=== PATIENT | female | born 1955 | race Caucasian/White ===

== ENCOUNTER 2016-09-03 14:22 | Emergency (ER) | payer OTHER ==
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
[2016-09-03] MEDS: IPRATROPIUM/ALBUTEROL SULFATE 3 ML AMPUL.NEB NEB ONE ×2 (15:30→16:34)
[2016-09-03] MEDS: methylPREDNISolone SOD SUCC 125 MG/2 ML VIAL IVP PRN (16:05)
[2016-09-03] MEDS ORDERED: methylPREDNISolone SOD SUCC 125 MG/2 ML VIAL ONE (16:07)
[2016-09-03 16:22] LABS: BASOPHILS % 0.4 (0.0-1.5); EOSINOPHILS % 4.3 % (0.0-6.8); MEAN CORPUSCULAR HEMOGLOBIN 28.5 pg (28.0-34.0); MONOCYTES # 0.3 # k/uL (0.0-0.9); MONOCYTES % 6.2 % (0.0-11.0); NEUTROPHILS # 3.8 # k/uL (1.4-7.7)
[2016-09-03 16:39] LABS: eGFR (African) > 60; eGFR (Non-African) > 60
[2016-09-03 17:39] VITALS: BP 107/69
--- NOTE | 2016-09-03 18:35 | Diagnostic Imaging Report ---
[facility] [address] [facility].[address] [address] Report Submission Date: Sep 03, 2016 4:04:17 PM HAND STRIPPER Patient Study Name: PHANI CARDOSO Date: Sep 03, 2016 3:37:55 PM HAND STRIPPER Modality Type: CR Gender: F Description: CHEST : 55 Institution: [facility] Physician: EDWIN Juarez DO 2 views of the chest History: DIFFICULTY BREATHING X2 DAYS, SMOKER (Hx) / ASTHMA Findings: Comparison: None Heart is normal in size Left apical pleural thickening is present There is no focal consolidation, pleural effusion or pneumothorax, lungs are hyperexpanded. No acute osseous pathology Impression: No focal consolidation or pleural effusion Emphysema Electronically signed on Sep 03, 2016 4:04:17 PM HAND STRIPPER by: Radha VICTORIA
== END 2016-09-03 17:05 | disposition home or self-care (01) ==
LOC: EDBD 14:22 → ED 14:22
DX: J44.1 Chronic obstructive pulmonary disease with (acute) exacerbation (principal); F17.210 Nicotine dependence, cigarettes, uncomplicated
CPT/HCPCS: 71020; 80053; 85025; 94640; 96374; 99283; 99284; J2930; S1016

== ENCOUNTER 2017-01-26 01:03 | Emergency (ER) | payer OTHER ==
[2017-01-26] MEDS ORDERED: IPRATROPIUM/ALBUTEROL SULFATE 3 ML AMPUL.NEB NEB ONE ×2 (01:50→01:51)
[2017-01-26] MEDS ORDERED: ALBUTEROL SULFATE 2.5 MG/3 ML AMPUL.NEB NEB ONE ×2 (01:51→02:21)
[2017-01-26 02:01] LABS: BASOPHILS % 1.3 (0.0-1.5); EOSINOPHILS % 4.3 % (0.0-6.8); MEAN CORPUSCULAR VOLUME 88.4 fl (80.0-100.0); MONOCYTES % 5.3 % (0.0-11.0); NEUTROPHILS # 7.5 # k/uL (1.4-7.7)
[2017-01-26 02:17] LABS: eGFR (African) > 60; eGFR (Non-African) > 60
[2017-01-26] MEDS ORDERED: KETOROLAC TROMETHAMINE 30 MG/1ML VIAL ONE (03:10)
[2017-01-26] MEDS ORDERED: KETOROLAC TROMETHAMINE 30 MG/1ML VIAL IVP ONE (03:13)
[2017-01-26] MEDS ORDERED: methylPREDNISolone SOD SUCC 125 MG/2 ML VIAL ONE (03:19)
--- NOTE | 2017-01-26 03:32 | ED Physician Documentation ---
Dyspnea - HISTORIAN Historian: patient, child - HPI Stated Complaint: soa Chief Complaint: Dyspnea Additional Information: sob cough chills-thinks caught pneumonia from son-same symptoms Onset: days ago (1) Duration: continues in ED, worse Initiating Event: upper respiratory illness Severity: moderate Exacerbated By: exertion, laying flat, coughing Associated Symptoms: chills, chest discomfort, productive cough - ROS CONST: recent illness EYES/ENT: denies: problems with vision GI/: none NEURO/PSYCH: headache (thinks from coughing) - PAST HX Lung Disease: COPD, other (spinal stenosis djd fibromyalgia ra djd copd) Cardiac Disease: none PE Risk Factors: hypertension Surgeries/Procedures: hysterectomy, other (neck c-sect hernia umb appy) Allergies/Adverse Reactions: Allergies Allergy/AdvReac Type Severity Reaction Status Date / Time morphine Allergy Intermediate Verified 01/26/17 01:15 Penicillins Allergy Verified 01/26/17 01:15 Home Medications: Ambulatory Orders Medication Instructions Recorded Escitalopram Oxalate [Lexapro] 30 mg PO QD 09/03/16 Oxycodone HCl [Roxicodone] 30 mg PO QID 09/03/16 Pregabalin [Lyrica] 100 mg PO TID 09/03/16 clonazePAM [Klonopin] 1 mg PO HS 09/03/16 Ketorolac Tromethamine 20 mg PO PRN PRN 01/26/17 Oxycodone HCl [Oxycontin] 30 mg PO BID 01/26/17 - SOCIAL HX Smoking History: less than 1 pack/day Alcohol Use: none Drug Use: none - FAMILY HX Family History: no significant history - VITAL SIGNS Vital Signs: Vital Signs Temp Pulse Resp BP Pulse Ox 98.7 F 108 H 22 108/79 91 L 01/26/17 01:03 01/26/17 01:03 01/26/17 01:03 01/26/17 01:03 01/26/17 01:03 - REVIEWED ASSESSMENTS Nursing Assessment Reviewed: Yes Vitals Reviewed: Yes ED Results Lab/Radiology - Lab Results Lab Results: Lab Results 01/26/17 01:58 WBC 9.20 K/ul K/ul (4.00-12.00) RBC 5.10 M/ul M/ul (3.90-5.20) Hgb 14.3 g/dL g/dL (12.0-16.0) Hct 45.0 % % (34.5-46.5) MCV 88.4 fl fl (80.0-100.0) MCH 28.0 pg pg (28.0-34.0) MCHC 31.7 g/dL g/dL (30.0-36.0) RDW 14.6 % H % (11.3-14.3) Plt Count 167 K/mm3 K/mm3 (130-400) Neut % (Auto) 81.4 % H % (39.0-79.0) Lymph % (Auto) 5.9 % L % (16.0-50.0) [place] % (Auto) 5.3 % % (0.0-11.0) Eos % (Auto) 4.3 % % (0.0-6.8) Baso % (Auto) 1.3 (0.0-1.5) Neut # 7.5 # k/uL # k/uL (1.4-7.7) Lymph # 0.5 # k/uL L # k/uL (0.6-4.0) [place] # 0.5 # k/uL # k/uL (0.0-0.9) Eos # 0.4 # k/uL # k/uL (0.0-0.6) Baso # 0.1 # k/uL # k/uL (0.0-0.5) Reactive Lymphs % 1.8 % % (0.0-5.0) Reactive Lymphs # 0.2 # k/uL # k/uL (0.0-0.8) - Radiology Radiology Impressions: no pneumonia apparent -= adv copd - Orders Orders: ED Orders Category Date Time Status Place IV Lock 1T Care 01/26/17 01:10 Active CHEST P.A.&LAT 2 VIEWS [RAD] Stat Exams 01/26/17 Taken CBC/PLATELET/DIFF Routine Lab 01/26/17 01:58 Completed CMP Routine Lab 01/26/17 01:57 Received Albuterol Sulfate [Ventolin] Med 01/26/17 01:51 Discontinued 2.5 mg NEB NOW ONE Ipratropium/Albuterol Sulfate [Duoneb] Med 01/26/17 01:51 Discontinued 3 ml NEB .STK-MED ONE Ipratropium/Albuterol Sulfate [Duoneb] Med 01/26/17 01:50 Discontinued 3 ml NEB NOW ONE Oxygen Daily Oxygen 01/26/17 02:00 Ordered EKG WITH COMPARISON Stat Ther 01/26/17 Ordered Dyspnea Physical Exam - EXAM General Appearance: moderate distress EENT: eye inspection normal Neck: nml inspection. No: lymphadenopathy Respiratory: speaks full sentences, prolonged expirations, decreased air movement, wheezes, rales, rhonchi. No: breath sounds nml CVS: reg. rate & rhythm Abdomen: non-tender, no distention Skin: color nml, no rash. No: cyanosis, diaphoresis, pallor Extremities: normal range of motion Neuro/Psych: oriented x3, motor nml, sensation nml, mood/affect nml Discharge Clincal Impression: acute bronchitis/copd Referrals: Primary Doctor,No [Primary Care Provider] - 2 Days Home Medications: Ambulatory Orders Escitalopram Oxalate [Lexapro] 30 mg PO QD 09/03/16 Oxycodone HCl [Roxicodone] 30 mg PO QID 09/03/16 Pregabalin [Lyrica] 100 mg PO TID 09/03/16 clonazePAM [Klonopin] 1 mg PO HS 09/03/16 Ketorolac Tromethamine 20 mg PO PRN PRN 01/26/17 Oxycodone HCl [Oxycontin] 30 mg PO BID 01/26/17 Comments: home meds dc cigarettes Condition: Good Disposition: 01 HOME, SELF-CARE Decision to Admit: NO Decision Time: 03:32
[2017-01-26 03:55] VITALS: BP 107/71
--- NOTE | 2017-01-26 06:51 | Diagnostic Imaging Report ---
KATIA PINEDA~ [facility] [address] [address] ~ ~ ~ ~ Report Submission Date: Jan 26, 2017 3:12:01 AM CDT Patient ~ Study Name: PHANI CARDOSO ~ Date: Jan 26, 2017 1:36:59 AM CDT ~ Modality Type: CR Gender: F ~ Description: CHEST : 55 ~ Institution: [facility] Physician: KATIA PINEDA ~ ~ ~ ~ Chest 2 views History: 3 days of shortness of breath. Smoker. Findings: The lungs are moderately to markedly hyperinflated without pneumonia, pleural effusion, or pneumothorax. Cervical fusion hardware is observed. Heart size is normal. Osseous structures are intact. Impression: Chronic obstructive pulmonary disease without change since the exam. ~ Electronically signed on Jan 26, 2017 3:12:01 AM CDT by: Isaac VICTORIA
== END 2017-01-26 03:26 | disposition home or self-care (01) ==
LOC: ED 01:03
DX: J44.1 Chronic obstructive pulmonary disease with (acute) exacerbation (principal); J20.9 Acute bronchitis, unspecified
CPT/HCPCS: 71020; 80053; 85025; 93005; J1885; J2930; 99283; S1016

== ENCOUNTER 2017-10-30 21:00 | Emergency (ER) | payer OTHER ==
--- NOTE | 2017-10-30 21:15 | ED Physician Documentation ---
Dyspnea - HISTORIAN Historian: patient - HPI Chief Complaint: Dyspnea Additional Information: smoker says she cant breath x 2 days, with new cough, and chills. has no nebs at home, does have inhaler and O2 that she doesn't use. has new PCP that she hasn't seen. no chest pain, no other symptoms Onset: days ago Duration: continues in ED Severity: mild Exacerbated By: exertion Associated Symptoms: chills - ROS CONST: recent illness EYES/ENT: none GI/: none NEURO/PSYCH: denies: headache MS/SKIN/LYMPH: none - PAST HX Lung Disease: COPD Cardiac Disease: none PE Risk Factors: none Surgeries/Procedures: none Other History: none Allergies/Adverse Reactions: Allergies Allergy/AdvReac Type Severity Reaction Status Date / Time morphine Allergy Intermediate Verified 10/30/17 21:21 Penicillins Allergy Verified 10/30/17 21:21 Home Medications: Ambulatory Orders Medication Instructions Recorded Escitalopram Oxalate [Lexapro] 30 mg PO QD 09/03/16 Oxycodone HCl [Roxicodone] 30 mg PO QID 09/03/16 Pregabalin [Lyrica] 100 mg PO TID 09/03/16 clonazePAM [Klonopin] 1 mg PO HS 09/03/16 Ketorolac Tromethamine 20 mg PO PRN PRN 01/26/17 Oxycodone HCl [Oxycontin] 30 mg PO BID 01/26/17 - SOCIAL HX Smoking History: cigarettes Alcohol Use: none Drug Use: none - FAMILY HX Family History: none - VITAL SIGNS Vital Signs: Vital Signs Temp Pulse Resp BP Pulse Ox 107/71 01/26/17 03:52 - REVIEWED ASSESSMENTS Nursing Assessment Reviewed: Yes Vitals Reviewed: Yes Progress - Progress Progress: sat 94-97% on RA after duoneb, ED Results Lab/Radiology - Radiology Radiology Impressions: CXR no acute process - Orders Orders: ED Orders Category Date Time Status CHEST 2VIEW [RAD] Stat Exams 10/30/17 Ordered Ipratropium/Albuterol Sulfate [Duoneb] Med 10/30/17 21:12 Once 3 ml NEB NOW ONE Oxygen Daily Oxygen 10/30/17 21:15 Ordered Dyspnea Physical Exam - EXAM General Appearance: no acute distress, alert EENT: ENT inspection normal, no signs of dehydration Neck: nml inspection Respiratory: no resp. distress, wheezes CVS: reg. rate & rhythm, no murmur Abdomen: non-tender Skin: color nml, no rash Extremities: non-tender, normal range of motion, no evidence of injury, no edema Neuro/Psych: oriented x3, sensation nml, mood/affect nml Discharge Clincal Impression: Acute exacerbation of chronic obstructive pulmonary disease (COPD) Referrals: Primary Doctor,No [Primary Care Provider] - 2 Days Condition: Good Disposition: 01 HOME, SELF-CARE Decision to Admit: NO Date of Decison to Admit: 10/30/17 Decision Time: 22:07
[2017-10-30] MEDS: IPRATROPIUM/ALBUTEROL SULFATE 3 ML AMPUL.NEB NEB ONE (21:36)
[2017-10-30] MEDS: methylPREDNISolone SOD SUCC 125 MG/2 ML VIAL IM ONE (22:07)
[2017-10-30] MEDS: methylPREDNISolone SOD SUCC 125 MG/2 ML VIAL ONE (22:14)
[2017-10-30 22:19] VITALS: BP 132/75
--- NOTE | 2017-10-31 14:55 | Diagnostic Imaging Report ---
HITESH LOREDO [facility] [address] [facility] [address] [address] Report Submission Date: Oct 30, 2017 10:03:33 PM MANAGER USER EXPERIENCE Patient Study Name: PHANI CARDOSO Date: Oct 30, 2017 9:34:56 PM MANAGER USER EXPERIENCE Modality Type: DX Gender: F Description: CHEST : 55 Institution: [facility] Physician: HITESH LOREDO PA and lateral chest Clinical history: SOA; COUGH W/BROWNISH PHLEGM X 2 DAYS WITH HX OF COPD AND SMOKING Findings: Examination of the chest in PA and lateral views demonstrates lungs to be hyperinflated but clear. Cardiovascular and mediastinal silhouettes are within normal limits. Aorta is atherosclerotic. Bony thorax is intact. Impression: 1. Hyperinflation. 2. Aortic atherosclerosis. 3. No active disease. Electronically signed on Oct 30, 2017 10:03:33 PM MANAGER USER EXPERIENCE by: Gatito VICTORIA
== END 2017-10-30 22:15 | disposition home or self-care (01) ==
LOC: ED 21:00
DX: J44.1 Chronic obstructive pulmonary disease with (acute) exacerbation (principal)
CPT/HCPCS: 71046; J2930; 94640; 96372; 99283

== ENCOUNTER 2019-05-31 09:39 | Outpatient (CLI) | payer OTHER ==
--- NOTE | 2019-06-15 10:36 | Diagnostic Imaging Report ---
KAY VANCE [facility] [address] [address] Report Submission Date: May 31, 2019 12:17:27 PM CDT Patient Study Name: PHANI CARDOSO Date: May 31, 2019 11:07:22 AM CDT Modality Type: DX Gender: F Description: PELVIS AP 1 OR 2 VIEWS : 55 Institution: [facility] Physician: KAY VANCE Exam:? Pelvic AP view Indication: ORDER STATES CHRONIC LUMBARGO (Hx) / Note time : 05/31/2019 11:52:17 AM User : Edgar Ashraf ORDER STATES CHRONIC LUMBARGO (DICOM Hx) (DICOM Hx) ? Findings:? No acute fracture, subluxation, or just location is identified. Bony demineralization is present. If clinical symptoms persist follow up examination may be warranted to exclude an occult process. Impression: No acute osseous abnormality. Electronically signed on May 31, 2019 12:17:27 PM CDT by: Gerard VICTORIA
--- NOTE | 2019-06-15 10:37 | Diagnostic Imaging Report ---
KAY VANCE [facility] [address] [address] Report Submission Date: May 31, 2019 12:16:35 PM CDT Patient Study Name: PHANI CARDOSO Date: May 31, 2019 11:06:37 AM CDT Modality Type: DX Gender: F Description: C SPINE 4 VIEWS OR MORE : 55 Institution: [facility] Physician: KAY VANCE Cervical Spine 5 views Indication:ORDER STATES CERVICAL RADICULITIS VS RADICULOPATHY (Hx) / Note time : 05/31/2019 11:51:29 AM User : Edgar Ashraf ORDER STATES CERVICAL RADICULITIS VS RADICULOPATHY (DICOM Hx) (DICOM Hx) Findings: 5 views of the cervical spine demonstrate interfusion of C4 through C6 with bony plate and screws. There is intervertebral disc space narrowing and endplate degenerative changes of C3-4. There is fusion C4-5 and C5-6. No definite acute fracture is seen. There is intervertebral disc space narrowing of C6-7. There is bony demineralization. Impression: Anterior fusion C4 through C6 with degenerative changes Electronically signed on May 31, 2019 12:16:35 PM CDT by: Gerard VICTORIA
--- NOTE | 2019-06-15 10:39 | Diagnostic Imaging Report ---
KAY VANCE [facility] [address] [address] Report Submission Date: May 31, 2019 12:13:59 PM CDT Patient Study Name: PHANI CARDOSO Date: May 31, 2019 11:06:46 AM CDT Modality Type: DX Gender: F Description: L SPINE 6 VIEWS : 55 Institution: [facility] Physician: KAY VANCE LUMBAR SPINE 7 VIEWS CLINICAL INDICATION: ORDER STATES LUMBAR RADICULITIS VS RADICULOPATHY (Hx) / Note time : 05/31/2019 11:47:58 AM User : Edgar Ashraf ORDER STATES LUMBAR RADICULITIS VS RADICULOPATHY (DICOM Hx) (DICOM Hx) ? FINDINGS: Seven views of the lumbar spine were obtained. Mild age indeterminate compression deformity of L4 and L5 are demonstrated. There is anterolisthesis grade I of L4 on L5 similar on flexion and extension. There is intervertebral disc space narrowing of L4-5 If clinical symptoms persist, follow up exam may be warranted to exclude an occult process.? IMPRESSION: age indeterminate compression fractures L4 and L5. MRI may be a further use Mild anterolisthesis L4 upon outside . Electronically signed on May 31, 2019 12:13:59 PM CDT by: Gerard VICTORIA
--- NOTE | 2019-06-26 12:59 | CONSULTATION REPORT ---
DATE OF CONSULTATION: 05/31/2019 CHIEF COMPLAINT: 1. Low back pain. 2. Secondarily neck pain. HISTORY OF PRESENT ILLNESS: Fanny is a 63-year-old female patient here for evaluation of her low back pain. The patient tells me that she has had low back pain for approximately 26 years that has been progressive in nature. There was no initial injury that had set her pain symptoms off. She describes her back pain as constant aching to shooting. She does report bilateral lower extremity radiation anteriorly wrapping around to her calf down to her toes. She has numbness and tingling in the same distribution. She complains of weakness, and that her legs fatigue easily and feel heavy. She denies urinary incontinence, bowel incontinence or saddle anesthesia. She states 30% of her pain is axial pain versus 70% in her bilateral lower extremities. The patient's pain is worse with sitting, walking and with the cold weather. Her pain is better with lying down and her pain medications. Previously, the patient has tried injections, the last one being eight years ago. Again, she has had physical therapy, but she last participated in it eight years ago. She has had no cardiac care unit nurse for her low back pain. The last imaging the patient had was a year or so ago and the patient denies any changes in her symptoms since. Secondarily, the patient has complaints of neck pain that she states she has had nearly her entire life. Her neck pain worsened in February after a fall. She describes her neck pain as constant aching to burning. She complains of bilateral upper extremity radiation posteriorly down to her fingers and also up into her scalp and head. She complains of bilateral upper extremity numbness and tingling. The patient is right-hand dominant. She complains of weakness stating that she drops items. She states 80% of her pain is axial neck pain versus 20% in her bilateral upper extremities. The patient has tried injections which from her description sounds like epidural steroid injections and facet joint injections. The patient last had physical therapy about six years ago for her neck. She has tried cardiac care unit nurse with improvement in her neck pain. The patient comes to us on oxycodone at 20 mg four times per day, OxyContin 20 mg b.i.d. and Lyrica 100 mg three times per day as well as Toradol for her headaches. She denies any medication side effects or concerns. PAST MEDICAL HISTORY: Includes fibromyalgia, rheumatoid arthritis, osteoarthritis, migraine headaches, diverticulitis, spinal stenosis (site unknown). She puts degenerative bone disease, ankylosing spondylitis and severe osteoporosis. Back pain and neck pain, joint pain, COPD with nighttime oxygen at 3 liters, depression, gouty arthritis, heartburn/reflux, sleep apnea, but she only uses the nighttime oxygen, TIA and ambulation assistance with a cane. PAST SURGICAL HISTORY: Includes an appendectomy in 1973, hysterectomy 30 years ago, C section x1 in 1979, umbilical hernia repair, hemorrhoidectomy, full extraction of her teeth in 1972, cervical disc replacement five to six years ago. SOCIAL HISTORY: She is . She has had four pregnancies with three live births and one miscarriage/. Tobacco use is current one-half pack per day x50 years, ETOH denies, recreational drugs denies. CURRENT MEDICATIONS: Oxycodone 20 mg q.i.d., OxyContin 20 mg b.i.d., Lyrica 100 mg t.i.d., Toradol 10 mg one to two tabs at onset of headache, Klonopin 1 mg q.h.s., Lexapro 30 mg p.o. daily and Benadryl 25 mg q.4-6h p.r.n. allergies. ALLERGIES: She has allergic to penicillin. FAMILY HISTORY: Her mother had cancer (not specified) and her father had an IL. REVIEW OF SYSTEMS: A complete 14-point review of systems was performed and positive for fatigue, weakness, weight loss, decreased appetite, glasses, shortness of breath with activity, night sweats, constipation, heartburn, panic attacks, headaches, arm/leg weakness, sensitivity of hands/feet, ambulation assistance with a cane, neck pain, low back pain and joint pain. OBJECTIVE: General: This is a well-developed, well-nourished female patient presenting in [facility]. Vital Signs: She is 5 feet 5 inches tall, weighs 124 pounds, temperature is 97.9, pulse is 85, respiratory rate is 18, blood pressure 130/71 with an SaO2 of 94% on room air. She is rating her pain a 10/10 today. Psych: She is alert and oriented x3. She is calm, pleasant and cooperative. HEENT: She is normocephalic and atraumatic. Pupils are equal and round without miosis. Sclerae clear. Trachea is midline. There is no lymphadenopathy or thyromegaly on palpation. CV: Normal S1, S2. Regular rate and rhythm. No gallops, rubs, or murmurs. Pulmonary: Nonlabored respirations at rest. Clear to auscultation, diminished in bilateral posterior bases. GI: Abdomen is soft, nondistended and nontender with bowel sounds present in all four quadrants. Musculoskeletal: The patient has achieved lumbar flexion to her fingertips being approximately 12 inches off the floor. Extension is full with axial low back pain. Bilateral Goldstein's is positive for axial low back pain only. The patient is tender to palpation over the bilateral L3-4, L4-5 and L5-S1 facets and spinous processes as well as over the lower lumbar paraspinal muscles. There is no obvious deformity when looking at her spine. Bilateral lower extremity strength is equal and strong in all areas, graded 5/5 in hip flexion, knee extension, knee flexion, dorsiflexion and plantarflexion. Deep tendon reflexes are 2+ in bilateral patellae. Seated straight leg raise is negative. Sensation to light touch is intact in bilateral lower extremities. The patient has full cervical flexion and decreased extension related to end range pain. Right rotation is restricted, left rotation is full. The patient is restricted in lateral bending bilaterally. The patient has tenderness to palpation throughout the cervical spine more so in the lower cervical spine. She also has tenderness to palpation in the cervical paraspinals. Bilateral upper extremity strength is equal and strong, all areas graded 5/5 with elbow flexion, elbow extension, wrist extension, wrist flexion, finger abduction, finger adduction and dry wall installations mechanic are equal and strong as well. Sensation to light touch is intact in bilateral upper extremities. Deep tendon reflexes are 2+ in bilateral upper extremities as well. Neurologic: Cranial nerves II through XII are grossly intact. Gait is antalgic with a cane. IMPRESSION: 1. Chronic lumbago. 2. Lumbar radiculitis versus radiculopathy. 3. Chronic cervicalgia. 4. Cervical radiculitis versus radiculopathy. 5. Osteoporosis. PLAN: 1. I have ordered an L-spine x-ray series to include flexion and extension. 2. I have ordered an AP pelvis x-ray. 3. I have ordered a cervical spine x-ray series to include flexion and extension. 4. I have ordered a DEXA scan to assess her osteoporosis. 5. I have ordered an MRI of her cervical spine without contrast. 6. I have ordered MRI of her lumbar spine without contrast. 7. I am going to continue her OxyContin at 20 mg q.12h, dispense #60 with no refills. This equals 60 morphine mEq. 8. I am decreasing her oxycodone from 20 mg to 10 mg q.i.d. p.r.n. breakthrough pain, dispense #120 with no refills. This is 60 morphine mEq as well, for a total of 120 morphine mEq per day. I have advised the patient that we will continue to work on weaning her opiates to be less than 90 morphine mEq and closer to 60, if we are able. I also discussed the risks associated with concurrent use of benzodiazepines, and opiates. The patient only takes her Klonopin at bedtime, and I have advised her to take it several hours before or after her pain medication regimen. We discussed the risks of adverse reactions to include, but not limited to, unintentional overdose, including the possibility of . She verbalizes understanding of this. 9. I have also refilled her Lyrica 100 mg t.i.d., dispense #90 with no refills. 10. I have given her Toradol 10 mg one to two tabs at onset of headache, dispense #20 with no refills. 11. I have also prescribed her tizanidine 4 mg one half to one tab p.o. t.i.d. p.r.n. muscle spasms, dispense #90 with no refills. 12. The patient is to follow up in one month or sooner if needed. The patient has been advised to bring the disks of her MRI scans so that we may go over them at the next visit and to determine the best plan of care for her. The patient verbalizes understanding and agrees with the current treatment plan. Karyn Huitron NP Nurse Practitioner /[employer] [id number] Job #[id number] cc: DO JULIEN Dent
== END 2019-05-31 10:39 ==
LOC: OUT 09:39
PROVIDERS: ATTEND Nurse Practitioner Adult Health
DX: G89.29 Other chronic pain (principal); M54.5 Low back pain; M54.2 Cervicalgia; M81.0 Age-related osteoporosis without current pathological fracture
CPT/HCPCS: 72050; 72110; 72170; 99203